=== PATIENT | female | born 1965 ===

== ENCOUNTER 2017-11-08 17:56 | Inpatient (IN) | payer OTHER ==
[2017-11-08 17:56] VITALS: BMI 31.1
[2017-11-08] MEDS ORDERED: Sodium Chloride 0.9% 1,000 ML IV STA (18:10)
[2017-11-08 18:32] LABS: BASO % 0.5 % (0.0-2.0); EOS # 0.2 K/uL (0.0-0.7); EOS % 1.9 % (0.0-4.0); HEMOGLOBIN 10.7 g/dL (12.0-16.0); LYMPH # 1.9 K/uL (1.0-4.3); LYMPH % 19.7 % (20.0-40.0); MEAN CELL VOLUME 74.6 fl (81.0-99.0); MEAN CORPUSCULAR HEMOGLOBIN 24.1 pg (27.0-31.0); MEAN CORPUSCULAR HGB CONC 32.3 g/dL (33.0-37.0); MEAN PLATELET VOLUME 8.7 fl (7.2-11.7); MONO # 0.8 K/uL (0.0-0.8); MONO % 8.2 % (0.0-10.0); NEUT # 6.6 K/uL (1.8-7.0); NEUT % 69.7 % (50.0-75.0); RBC 4.45 Mil/uL (3.80-5.20); RED CELL DISTRIBUTION WIDTH 17.4 % (11.5-14.5); WHITE BLOOD COUNT 9.5 K/uL (4.8-10.8)
[2017-11-08 18:43] LABS: INR 1.1 (0.9-1.2); PARTIAL THROMBOPLASTIN TIME 34.2 Seconds (25.6-37.1); PROTHROMBIN TIME 12.7 Seconds (9.8-13.1)
--- NOTE | 2017-11-08 18:46 | ED PDOC ---
HPI: Abdomen Time Seen by Provider: 11/08/17 18:06 Chief Complaint (Nursing): Abdominal Pain Chief Complaint (Provider): abdominal pain, "skin is yellow" History Per: Patient History/Exam Limitations: no limitations Onset/Duration Of Symptoms: Days (2) Current Symptoms Are (Timing): Still Present Severity: Moderate Location Of Pain/Discomfort: RUQ Quality Of Discomfort: Sharp Associated Symptoms: Nausea, Vomiting, Diarrhea Exacerbating Factors: None Alleviating Factors: None Additional Complaint(s): 52yo male sent to ED from [facility] for RUQ abd pain and nausea/ vomiting associated with noticeable jaundice which started today per patient. Denies fever, chills, bloody stools or hematemesis. Denies etoh abuse or prior history of liver disease. Past Medical History Reviewed: Historical Data, Nursing Documentation, Vital Signs Vital Signs: Last Vital Signs Temp 98.8 F 11/08/17 18:03 Pulse 69 11/08/17 18:03 Resp 21 11/08/17 18:03 BP 117/70 11/08/17 18:03 Pulse Ox 100 11/08/17 18:48 - Medical History PMH: No Chronic Diseases - Surgical History Surgical History: No Surg Hx - Family History Family History: States: Unknown Family Hx - Living Arrangements Living Arrangements: With Family - Home Medications Home Medications: Ambulatory Orders Medication Instructions Recorded Multivit/Iron/Folic Acid/Hb179 1 tab PO DAILY 11/08/17 [Obed Multi For Women Tab] - Allergies Allergies/Adverse Reactions: Allergies Allergy/AdvReac Type Severity Reaction Status Date / Time No Known Allergies Allergy Verified 04/06/17 11:13 Review of Systems Constitutional: Negative for: Fever, Chills Eyes: Positive for: Other (yellowing) Cardiovascular: Negative for: Chest Pain Gastrointestinal: Positive for: Nausea, Vomiting, Abdominal Pain, Diarrhea Genitourinary Female: Negative for: Dysuria Musculoskeletal: Negative for: Neck Pain Skin: Positive for: Jaundice. Negative for: Rash, Lesions Neurological: Negative for: Weakness, Headache Physical Exam - Reviewed Nursing Documentation Reviewed: Yes Vital Signs Reviewed: Yes - Physical Exam Appears: Positive for: Well, Non-toxic, No Acute Distress Head Exam: Positive for: ATRAUMATIC, NORMAL INSPECTION, NORMOCEPHALIC Skin: Positive for: Warm, Jaundice Eye Exam: Positive for: Normal appearance, EOMI, PERRL, Scleral icterus ENT: Positive for: Normal ENT Inspection Neck: Positive for: Normal, Painless ROM Cardiovascular/Chest: Positive for: Regular Rate, Rhythm Respiratory: Positive for: CNT, Normal Breath Sounds Gastrointestinal/Abdominal: Positive for: Soft, Tenderness (RUQ). Negative for : Guarding Back: Positive for: Normal Inspection Extremity: Positive for: Normal ROM Neurologic/Psych: Positive for: Alert, Oriented. Negative for: Motor/Sensory Deficits - Laboratory Results Result Diagrams: 11/08/17 18:29 11/08/17 18:29 - ECG O2 Sat by Pulse Oximetry: 100 Medical Decision Making Medical Decision Making: workup for acute abdomen with clinical evidence of acute jaundice initiated Labs, US abdomen, IVF. Disposition - Clinical Impression Clinical Impression: Abdominal pain, Jaundice - Disposition Disposition: Transfer of Care Disposition Time: 18:48 Condition: STABLE Forms: [facility] (Uzbek) Patient Signed Over To: Geovanny Figueroa Handoff Comments: pending US and labwork, dispo/ likely admission
[2017-11-08 19:23] LABS: ALB/GLOB RATIO 0.9 (1.0-2.1); ALBUMIN 3.6 g/dL (3.5-5.0); ALT/SGPT 311 U/L (9-52); AST/SGOT 194 U/L (14-36); BLOOD UREA NITROGEN 6 mg/dl (7-17); CALCIUM 8.7 mg/dL (8.4-10.2); GFR AFRICAN-AMERICAN > 60; GFR NON-AFRICAN AMERICAN > 60; LIPASE 65 U/L (23-300)
--- NOTE | 2017-11-08 20:38 | ED PDOC ---
- Laboratory Results Result Diagrams: 11/08/17 18:29 11/08/17 18:29 - ECG O2 Sat by Pulse Oximetry: 100 Pulse Ox Interpretation: Normal Medical Decision Making Medical Decision MakinPM: Patient endorsed to me by Dr. Chung pending ultrasound study and labs 830PM:EXAM: US Abdomen Complete CLINICAL HISTORY: The patient is a 52 years female; Pain; Abdominal pain; Epigastric; Additional info: Ruq pain, jaundice 11/08/2017 6:09 PM TECHNIQUE: Real-time ultrasound of the abdomen (complete) with image documentation. COMPARISON: No relevant prior studies available. FINDINGS: Liver: Unremarkable. Gallbladder: Gallbladder wall measures up to 3 mm in thickness.. Cholelithiasis.As per the technologist note, sonographic Kaur sign is positive. Correlate clinically.. Common bile duct: Measures 7.8 mm. Pancreas: Unremarkable as visualized. Kidneys: Unremarkable. No stones. No hydronephrosis. Spleen: Unremarkable. No splenomegaly. Aorta: Unremarkable. No aneurysm. Inferior vena cava: Unremarkable. IMPRESSION: Cholelithiasis and borderline gallbladder wall thickening. As per the technologist note, sonographic Kaur sign is positive. Correlate clinically. Common bile duct is dilated measuring up to 7-8 mm. The remainder of the findings are as described above. Patient re-evaluated, feeling well, denies pain, patient is clearly jaundiced. Informed of results. Case discussed with Keith Okeefe NP. Will consult Dr. Cheatham and place patient in med/surg for additional inpatient management ( MRCP/ERCP, etc.). Disposition - Clinical Impression Clinical Impression: Jaundice, Cholecystitis - POA Present On Arrival: None - Disposition Disposition: Admitted as In-Patient Disposition Time: 20:30 Condition: STABLE
[2017-11-08] MEDS ORDERED: Famotidine 20mg/50ml Premix IVPB SCH (21:00)
[2017-11-08] MEDS ORDERED: Famotidine 20mg/50ml 20 MG/50 ML BAG IVPB ONE (21:48)
[2017-11-08] MEDS: Sodium Chloride 0.9% 1,000 ML IV SCH (21:51)
[2017-11-08] MEDS ORDERED: cefOXitin 2 GM in Sodium Chloride 0.9% 100 ML IVPB STA (22:01)
[2017-11-09] MEDS: Sodium Chloride 0.9% 1,000 ML IV SCH ×3 (03:40→16:00)
[2017-11-09 06:23] LABS: BASO # 0.1 K/uL (0.0-0.2); BASO % 0.6 % (0.0-2.0); EOS # 0.3 K/uL (0.0-0.7); EOS % 3.7 % (0.0-4.0); HEMOGLOBIN 10.3 g/dL (12.0-16.0); LYMPH # 2.4 K/uL (1.0-4.3); LYMPH % 29.3 % (20.0-40.0); MEAN CELL VOLUME 74.7 fl (81.0-99.0); MEAN CORPUSCULAR HGB CONC 32.1 g/dL (33.0-37.0); MEAN PLATELET VOLUME 8.9 fl (7.2-11.7); MONO # 0.8 K/uL (0.0-0.8); NEUT # 4.8 K/uL (1.8-7.0); NEUT % 57.4 % (50.0-75.0); NRBC % 0.1 % (0.0-0.0); RBC 4.27 Mil/uL (3.80-5.20); WHITE BLOOD COUNT 8.3 K/uL (4.8-10.8)
[2017-11-09 06:49] LABS: ALB/GLOB RATIO 0.9 (1.0-2.1); ALBUMIN 3.2 g/dL (3.5-5.0); ALT/SGPT 245 U/L (9-52); AST/SGOT 138 U/L (14-36); BLOOD UREA NITROGEN 6 mg/dl (7-17); GFR AFRICAN-AMERICAN > 60; GFR NON-AFRICAN AMERICAN > 60
--- NOTE | 2017-11-09 08:05 | CP.PCM.HP ---
History of Present Illness - History of Present Illness History of Present Illness: pt admitted for jaundice, elev lft/bili and choleductolithiasis. abd us completed but no final report. case d/c w/ dr perez and mri abd and mrcp ordered. ?? ercp today. at present, no f/,c n/v/d. lft/bili improving no med/surg hx reported Present on Admission - Present on Admission Any Indicators Present on Admission: No Review of Systems - Gastrointestinal Gastrointestinal: As Per HPI, Abdominal Pain, Nausea - Integumentary Integumentary: As Per HPI Additional comments: mild jaundice Past Patient History - Infectious Disease Hx of Infectious Diseases: None - Past Medical History & Family History Past Medical History?: No - Past Social History Smoking Status: Never Smoked - CARDIAC Hx Cardiac Disorders: No - PULMONARY Hx Respiratory Disorders: No - NEUROLOGICAL Hx Alzheimer's Disease: No - HEENT Hx HEENT Problems: No - RENAL Hx Chronic Kidney Disease: No - ENDOCRINE/METABOLIC Hx Endocrine Disorders: No - HEMATOLOGICAL/ONCOLOGICAL Hx Blood Disorders: No Hx AIDS: No Hx Human Immunodeficiency Virus (HIV): No - INTEGUMENTARY Hx Dermatological Problems: No - MUSCULOSKELETAL/RHEUMATOLOGICAL Hx Musculoskeletal Disorders: No Hx Falls: No - GASTROINTESTINAL Hx Gastrointestinal Disorders: No - GENITOURINARY/GYNECOLOGICAL Hx Genitourinary Disorders: No - PSYCHIATRIC Hx Psychophysiologic Disorder: No Hx Substance Use: No - SURGICAL HISTORY Hx Surgeries: No - ANESTHESIA Hx Anesthesia: No Meds Allergies/Adverse Reactions: Allergies Allergy/AdvReac Type Severity Reaction Status Date / Time No Known Allergies Allergy Verified 04/06/17 11:13 Physical Exam - Constitutional Appears: Well, Non-toxic, No Acute Distress - Head Exam Head Exam: ATRAUMATIC, NORMAL INSPECTION, NORMOCEPHALIC - Eye Exam Eye Exam: EOMI, Normal appearance, PERRL Pupil Exam: NORMAL ACCOMODATION, PERRL - ENT Exam ENT Exam: Mucous Membranes Moist, Normal Exam - Neck Exam Neck exam: Positive for: Normal Inspection - Respiratory Exam Respiratory Exam: Clear to Auscultation Bilateral, NORMAL BREATHING PATTERN - Cardiovascular Exam Cardiovascular Exam: REGULAR RHYTHM, RRR, +S1, +S2 - GI/Abdominal Exam GI & Abdominal Exam: Normal Bowel Sounds, Soft, Tenderness Additional comments: ruq tenderness - Extremities Exam Extremities exam: Positive for: full ROM, normal capillary refill, normal inspection, pedal pulses present - Back Exam Back exam: FULL ROM, NORMAL INSPECTION - Neurological Exam Neurological exam: Alert, CN II-XII Intact, Normal Gait, Oriented x3, Reflexes Normal - Psychiatric Exam Psychiatric exam: Normal Affect, Normal Mood - Skin Skin Exam: Dry, Intact, Normal Color, Warm Results - Vital Signs Recent Vital Signs: Last Vital Signs Temp 97.6 F 11/09/17 07:51 Pulse 65 11/09/17 07:51 Resp 18 11/09/17 07:51 BP 115/69 11/09/17 07:51 Pulse Ox 98 11/09/17 07:51 - Labs Result Diagrams: 11/09/17 05:55 11/09/17 05:55 Labs: Laboratory Results - last 24 hr 11/08/17 11/08/17 11/08/17 18:29 18:29 18:29 WBC 9.5 RBC 4.45 Hgb 10.7 L Hct 33.1 L MCV 74.6 L MCH 24.1 L MCHC 32.3 L RDW 17.4 H Plt Count 274 MPV 8.7 Neut % (Auto) 69.7 Lymph % (Auto) 19.7 L [place] % (Auto) 8.2 Eos % (Auto) 1.9 Baso % (Auto) 0.5 Neut # (Auto) 6.6 Lymph # (Auto) 1.9 [place] # (Auto) 0.8 Eos # (Auto) 0.2 Baso # (Auto) 0.0 PT 12.7 INR 1.1 APTT 34.2 Sodium 136 Potassium 3.5 L Chloride 99 Carbon Dioxide 25 Anion Gap 16 BUN 6 L Creatinine 0.7 Est GFR ( Amer) > 60 Est GFR (Non-Af Amer) > 60 Random Glucose 114 H Calcium 8.7 Total Bilirubin 4.9 H Direct Bilirubin AST 194 H ALT 311 H Alkaline Phosphatase 223 H Total Protein 7.6 Albumin 3.6 Globulin 3.9 Albumin/Globulin Ratio 0.9 L Lipase 65 Alcohol, Quantitative < 10 Blood Type Antibody Screen BBK History Checked 11/08/17 11/08/17 11/09/17 20:47 22:01 05:55 WBC 8.3 RBC 4.27 Hgb 10.3 L Hct 31.9 L MCV 74.7 L MCH 24.0 L MCHC 32.1 L RDW 17.0 H Plt Count 266 MPV 8.9 Neut % (Auto) 57.4 Lymph % (Auto) 29.3 [place] % (Auto) 9.0 Eos % (Auto) 3.7 Baso % (Auto) 0.6 Neut # (Auto) 4.8 Lymph # (Auto) 2.4 [place] # (Auto) 0.8 Eos # (Auto) 0.3 Baso # (Auto) 0.1 PT INR APTT Sodium Potassium Chloride Carbon Dioxide Anion Gap BUN Creatinine Est GFR ( Amer) Est GFR (Non-Af Amer) Random Glucose Calcium Total Bilirubin Direct Bilirubin 4.0 H AST ALT Alkaline Phosphatase Total Protein Albumin Globulin Albumin/Globulin Ratio Lipase Alcohol, Quantitative Blood Type O NEGATIVE Antibody Screen Negative BBK History Checked No verified bt 11/09/17 05:55 WBC RBC Hgb Hct MCV MCH MCHC RDW Plt Count MPV Neut % (Auto) Lymph % (Auto) [place] % (Auto) Eos % (Auto) Baso % (Auto) Neut # (Auto) Lymph # (Auto) [place] # (Auto) Eos # (Auto) Baso # (Auto) PT INR APTT Sodium 139 Potassium 3.7 Chloride 102 Carbon Dioxide 26 Anion Gap 15 BUN 6 L Creatinine 0.6 L Est GFR ( Amer) > 60 Est GFR (Non-Af Amer) > 60 Random Glucose 94 Calcium 8.0 L Total Bilirubin 4.4 H Direct Bilirubin AST 138 H D ALT 245 H D Alkaline Phosphatase 197 H Total Protein 6.7 Albumin 3.2 L Globulin 3.6 Albumin/Globulin Ratio 0.9 L Lipase Alcohol, Quantitative Blood Type Antibody Screen BBK History Checked Assessment & Plan (1) Choledocholithiasis Assessment and Plan: mri w/ contrast, mrcp w/o contrast gi, surgery pain and nausea control ivf, npo Status: Acute (2) DVT prophylaxis Assessment and Plan: scd nad ae hose ambulation hold anticoag for possible or intervention Status: Acute (3) Cholecystitis Assessment and Plan: mri w/ contrast, mrcp w/o contrast gi, surgery pain and nausea control ivf, npo anbx Status: Acute (4) Jaundice Assessment and Plan: improving, ivf monitor, gi Status: Acute Decision To Admit - Pt Status Changed To: Hospital Disposition Of: Inpatient - Admit Certification Admit to Inpatient:: After my assessment, the patient will require hospitalization for at least two midnights. This is because of the severity of symptoms shown, intensity of services needed, and/or the medical risk in this patient being treated as an outpatient. - . Bed Request Type: Med/Surg Admitting Physician: Bryan Shah
[2017-11-09] MEDS ORDERED: [UNRECOGNIZED DRUG - OTHER] PO SCH (09:00)
[2017-11-09] MEDS ORDERED: FOLIC ACID PO SCH (09:00)
[2017-11-09] MEDS ORDERED: IRON PO SCH (09:00)
[2017-11-09] MEDS ORDERED: MULTIVIT PO SCH (09:00)
[2017-11-09 09:03] LABS: SQUAMOUS EPITHIAL 4 /hpf (0-5); URINE BACTERIA RARE (<OCC); URINE BILIRUBIN MODERATE (NEGATIVE); URINE BLOOD NEGATIVE (NEGATIVE); URINE CLARITY SLIGHTY-CLOUDY (Clear); URINE COLOR AMBER (YELLOW); URINE GLUCOSE (UA) NEG (Normal); URINE LEUKOCYTE ESTERASE NEG Leu/uL (Negative); URINE PROTEIN NEGATIVE (NEGATIVE)
[2017-11-09 09:38] LABS: HCG,QUALITATIVE URINE NEGATIVE (NEGATIVE)
--- NOTE | 2017-11-09 10:01 | US ---
HISTORY: RUQ pain, jaundice 52-year-old female COMPARISON: None. TECHNIQUE: Sonographic evaluation of the abdomen. FINDINGS: LIVER: Measures 14.3 cm. Normal echogenicity of the liver parenchyma. No mass. No intrahepatic bile duct dilatation. GALLBLADDER: Per the technologist's note there are apparent tiny gallstones within the gallbladder neck. Technologist has noted also noted a positive Kaur sign. Please correlate clinically. The gallbladder wall thickness is 3.01 mm cysts is the upper limits of normal. No precious pericholecystic fluid appreciated. COMMON BILE DUCT: Measures 7.82 mm. No stones within the duct appreciated. . Common bile duct for patient's age is nearing the upper limits of normal. PANCREAS: Unremarkable as visualized. No mass. No ductal dilatation. RIGHT KIDNEY: Measures 11.3 x 4.8 x 3.7cm. Normal echogenicity. No calculus, mass, or hydronephrosis. LEFT KIDNEY: Measures 11.3 x 4.5 x 4.8cm. Normal echogenicity. No calculus, mass, or hydronephrosis. SPLEEN: Normal in size and contour. No mass. AORTA: No aneurysmal dilatation. IVC: Unremarkable. OTHER FINDINGS: None. IMPRESSION: Tiny gallstones apparent in the gallbladder neck with top-normal gallbladder wall thickness. Positive ultrasound Kaur sign per ct mri technologist note. Please correlate clinically. Common bile duct also nearing the upper limits of normal. Concordant results (preliminary interpretation) provided by [employer].
--- NOTE | 2017-11-09 10:32 | CP.PCM.CON ---
History of Present Illness - History of Present Illness History of Present Illness: 52 y.o. female comes to the hospital c/o abdominal pain for the duration of the last 2 days. Patient states that she also noticed that her urine is very dark in color and her stool is stone to white color. Patient also reports seen her eyes really yellow so she decided to come to the hospital to get her self checked out. Denies any fever but reported some chills. Reports some nausea and vomiting, no blood in the vomitus, no diarrhea or constipation. No sick contacts at home. No other complains at present time. Review of Systems - Constitutional Constitutional: As Per HPI - EENT Eyes: As Per HPI Ears: Other (unremarkable) Nose/Mouth/Throat: Other (unremarkable) - Breasts Breasts: Other (unremarkable) - Cardiovascular Cardiovascular: Other (unremarkable) - Respiratory Respiratory: Other (unremarkable) - Gastrointestinal Gastrointestinal: As Per HPI - Genitourinary Genitourinary: As Per HPI - Reproductive: Female Reproductive:Female: Other (unremarkable) - Musculoskeletal Musculoskeletal: Other (unremarkable) - Integumentary Integumentary: Jaundice - Neurological Neurological: Other (unremarkable) - Psychiatric Psychiatric: Other (unremarkable) - Endocrine Endocrine: Other (unremarkable) - Hematologic/Lymphatic Hematologic: Other (unremarkable) Past Patient History - Infectious Disease Hx of Infectious Diseases: None - Past Medical History & Family History Past Medical History?: No - Past Social History Smoking Status: Never Smoked - CARDIAC Hx Cardiac Disorders: No - PULMONARY Hx Respiratory Disorders: No - NEUROLOGICAL Hx Alzheimer's Disease: No - HEENT Hx HEENT Problems: No - RENAL Hx Chronic Kidney Disease: No - ENDOCRINE/METABOLIC Hx Endocrine Disorders: No - HEMATOLOGICAL/ONCOLOGICAL Hx Blood Disorders: No Hx AIDS: No Hx Human Immunodeficiency Virus (HIV): No - INTEGUMENTARY Hx Dermatological Problems: No - MUSCULOSKELETAL/RHEUMATOLOGICAL Hx Musculoskeletal Disorders: No Hx Falls: No - GASTROINTESTINAL Hx Gastrointestinal Disorders: No - GENITOURINARY/GYNECOLOGICAL Hx Genitourinary Disorders: No - PSYCHIATRIC Hx Psychophysiologic Disorder: No Hx Substance Use: No - SURGICAL HISTORY Hx Surgeries: No - ANESTHESIA Hx Anesthesia: No Meds Allergies/Adverse Reactions: Allergies Allergy/AdvReac Type Severity Reaction Status Date / Time No Known Allergies Allergy Verified 04/06/17 11:13 - Medications Medications: Current Medications Sodium Chloride (Sodium Chloride 0.9%) 1,000 mls @ 150 mls/hr IV .Q6H40M [facility] Stop: 11/09/17 20:49 Last Admin: 11/09/17 03:40 Dose: Not Given Famotidine (Pepcid 20mg/50ml Premix) 20 mg in 50 mls @ 100 mls/hr IVPB Q12 [facility] Cefoxitin Sodium (Mefoxin Iv 1 Gm Duplex) 1 gm in 50 mls @ 50 mls/hr IVPB Q8 [facility] PRN Reason: Protocol Ketorolac Tromethamine (Toradol) 30 mg IVP Q6 PRN PRN Reason: Pain, moderate (4-7) Morphine Sulfate (Morphine) 2 mg IVP Q4 PRN PRN Reason: Pain, severe (8-10) Ondansetron HCl (Zofran Odt) 4 mg PO Q8H PRN PRN Reason: Nausea/Vomiting Vitamin B Complex/Vit C/Folic Acid (Nephro-Bright) 1 tab PO DAILY [facility] Physical Exam - Constitutional Appears: Non-toxic, No Acute Distress - Head Exam Head Exam: ATRAUMATIC, NORMAL INSPECTION, NORMOCEPHALIC - Eye Exam Eye Exam: EOMI, Scleral icterus Pupil Exam: NORMAL ACCOMODATION, PERRL - ENT Exam ENT Exam: Mucous Membranes Moist, Normal Exam - Neck Exam Neck exam: Positive for: Full Rom, Normal Inspection - Respiratory Exam Respiratory Exam: Clear to Auscultation Bilateral, NORMAL BREATHING PATTERN - Cardiovascular Exam Cardiovascular Exam: REGULAR RHYTHM, +S1, +S2 - GI/Abdominal Exam GI & Abdominal Exam: Normal Bowel Sounds, Soft Additional comments: tender in the epigastrium, ND, no rebound, no guarding, negative Kaur's sign - Rectal Exam Rectal Exam: Deferred - Extremities Exam Extremities exam: Positive for: full ROM, normal inspection - Back Exam Back exam: NORMAL INSPECTION - Neurological Exam Neurological exam: Alert, CN II-XII Intact, Oriented x3 - Psychiatric Exam Psychiatric exam: Normal Affect, Normal Mood - Skin Skin Exam: Dry, Intact, Warm Additional comments: Jaundice Results - Vital Signs Recent Vital Signs: Last Vital Signs Temp 97.6 F 11/09/17 07:51 Pulse 65 11/09/17 07:51 Resp 18 11/09/17 07:51 BP 115/69 11/09/17 07:51 Pulse Ox 98 11/09/17 07:51 - Labs Result Diagrams: 11/09/17 05:55 11/09/17 05:55 Labs: Laboratory Results - last 24 hr 11/08/17 11/08/17 11/08/17 18:29 18:29 18:29 WBC 9.5 RBC 4.45 Hgb 10.7 L Hct 33.1 L MCV 74.6 L MCH 24.1 L MCHC 32.3 L RDW 17.4 H Plt Count 274 MPV 8.7 Neut % (Auto) 69.7 Lymph % (Auto) 19.7 L [place] % (Auto) 8.2 Eos % (Auto) 1.9 Baso % (Auto) 0.5 Neut # (Auto) 6.6 Lymph # (Auto) 1.9 [place] # (Auto) 0.8 Eos # (Auto) 0.2 Baso # (Auto) 0.0 PT 12.7 INR 1.1 APTT 34.2 Sodium 136 Potassium 3.5 L Chloride 99 Carbon Dioxide 25 Anion Gap 16 BUN 6 L Creatinine 0.7 Est GFR ( Amer) > 60 Est GFR (Non-Af Amer) > 60 Random Glucose 114 H Calcium 8.7 Total Bilirubin 4.9 H Direct Bilirubin AST 194 H ALT 311 H Alkaline Phosphatase 223 H Total Protein 7.6 Albumin 3.6 Globulin 3.9 Albumin/Globulin Ratio 0.9 L Lipase 65 Urine Color Urine Clarity Urine pH Ur Specific [place] Urine Protein Urine Glucose (UA) Urine Ketones Urine Blood Urine Nitrate Urine Bilirubin Urine Urobilinogen Ur Leukocyte Esterase Urine RBC (Auto) Urine Microscopic WBC Ur Squamous Epith Cells Urine Bacteria Urine HCG, Qual Alcohol, Quantitative < 10 Blood Type Antibody Screen BBK History Checked 11/08/17 11/08/17 11/09/17 20:47 22:01 05:55 WBC 8.3 RBC 4.27 Hgb 10.3 L Hct 31.9 L MCV 74.7 L MCH 24.0 L MCHC 32.1 L RDW 17.0 H Plt Count 266 MPV 8.9 Neut % (Auto) 57.4 Lymph % (Auto) 29.3 [place] % (Auto) 9.0 Eos % (Auto) 3.7 Baso % (Auto) 0.6 Neut # (Auto) 4.8 Lymph # (Auto) 2.4 [place] # (Auto) 0.8 Eos # (Auto) 0.3 Baso # (Auto) 0.1 PT INR APTT Sodium Potassium Chloride Carbon Dioxide Anion Gap BUN Creatinine Est GFR ( Amer) Est GFR (Non-Af Amer) Random Glucose Calcium Total Bilirubin Direct Bilirubin 4.0 H AST ALT Alkaline Phosphatase Total Protein Albumin Globulin Albumin/Globulin Ratio Lipase Urine Color Urine Clarity Urine pH Ur Specific [place] Urine Protein Urine Glucose (UA) Urine Ketones Urine Blood Urine Nitrate Urine Bilirubin Urine Urobilinogen Ur Leukocyte Esterase Urine RBC (Auto) Urine Microscopic WBC Ur Squamous Epith Cells Urine Bacteria Urine HCG, Qual Alcohol, Quantitative Blood Type O NEGATIVE Antibody Screen Negative BBK History Checked No verified bt 11/09/17 11/09/17 05:55 08:50 WBC RBC Hgb Hct MCV MCH MCHC RDW Plt Count MPV Neut % (Auto) Lymph % (Auto) [place] % (Auto) Eos % (Auto) Baso % (Auto) Neut # (Auto) Lymph # (Auto) [place] # (Auto) Eos # (Auto) Baso # (Auto) PT INR APTT Sodium 139 Potassium 3.7 Chloride 102 Carbon Dioxide 26 Anion Gap 15 BUN 6 L Creatinine 0.6 L Est GFR ( Amer) > 60 Est GFR (Non-Af Amer) > 60 Random Glucose 94 Calcium 8.0 L Total Bilirubin 4.4 H Direct Bilirubin AST 138 H D ALT 245 H D Alkaline Phosphatase 197 H Total Protein 6.7 Albumin 3.2 L Globulin 3.6 Albumin/Globulin Ratio 0.9 L Lipase Urine Color [place] Urine Clarity Slighty-cloudy Urine pH 6.0 Ur Specific [place] 1.025 Urine Protein Negative Urine Glucose (UA) Neg Urine Ketones 80 Urine Blood Negative Urine Nitrate Negative Urine Bilirubin Moderate Urine Urobilinogen 4.0 H Ur Leukocyte Esterase Neg Urine RBC (Auto) 3 Urine Microscopic WBC 8 H Ur Squamous Epith Cells 4 Urine Bacteria Rare Urine HCG, Qual Negative Alcohol, Quantitative Blood Type Antibody Screen BBK History Checked - Imaging and Cardiology US - abdomen Status: Image reviewed by me, Report reviewed by me Assessment & Plan - Assessment and Plan (Free Text) Assessment: 52 y.o. female with abdominal pain and elevated LFTs r/o choledocholithiasis Plan: - Keep NPO - IV fluids - Pain control - Continue antibiotics - MRCP to r/o choledocholithiasis - GI consultation - Repeat labs in am - Will follow
[2017-11-09] MEDS ORDERED: Sodium Chloride 0.9% 50 ML IV ONE (10:37)
[2017-11-09] MEDS ORDERED: Gadodiamide 287 MG/ML VIAL (15ML) IV ONE (10:37)
[2017-11-09] MEDS: cefOXitin IV 1 gm in Dextrose 1 GM/50 ML BAG IVPB SCH ×2 (11:00→16:54)
[2017-11-09] MEDS: Famotidine 20mg/50ml 20 MG/50 ML BAG IVPB SCH ×2 (12:33→22:00)
[2017-11-09] MEDS: Multivitamin Vitamin B Complex (Nephro-Vite) Tab PO SCH (12:34)
--- NOTE | 2017-11-09 12:49 | MRI ---
PROCEDURE: Magnetic Resonance Cholangiopancreatography HISTORY: COMPARISON: Abdominal ultrasound TECHNIQUE: Multiplanar, multisequence MR images of the abdomen were obtained, including heavily T2 weighted MRCP images of the biliary system. Rotating maximum intensity projection images of the biliary system were generated. 15 cc of Omniscan was injected FINDINGS: MRCP: The common bile duct appears slightly more prominent on this MRCP than suggested on the ultrasound nevertheless this is approximately 8 to 9 mm in size on this exam. (series 11, image 2). . Within the distal common bile duct a 8 to 9 mm stone is suggested compatible with choledocholithiasis. The gallbladder is patulous distended and tortuous with multiple gallstones within it as well. Apparently within the gallbladder neck there is another 11 mm stone suggested. Multiple smaller stones are seen layering is well in the gallbladder. Minimal mild intrahepatic biliary ductal dilatation. Is also suspect. No gross obstructing mass seen. Tiny concomitant mild stenosis of the distal common bile duct not excluded. LIVER: On this exam there are T2 hyperintense lesions, nonenhancing, probably relating to lobulated and/or clustered liver cysts: 1 measures 2.3 cm in the right hepatic lobe (series 6, image 15) a larger cluster / loculated cysts in the more inferior posterior right hepatic lobe is also noted measuring up to 2.6 cm (series 7, image 30). I believe this lesion may have been inadvertently marked by the process safety engineering technologist as the gallbladder ofn the abdominal ultrasound images. GALLBLADDER: The gallbladder is patulous distended and tortuous with multiple gallstones within it as well. Apparently within the gallbladder neck there is another 11 mm stone suggested. Multiple smaller stones are seen layering is well in the gallbladder. SPLEEN: Unremarkable. PANCREAS: No obstructing mass seen. No pancreatic ductal dilatation noted. Common bile duct prominent 8 to 9 mm with stone within it suggested. ADRENALS: Unremarkable. KIDNEYS: No hydronephrosis. Tiny 1 to 2 mm left renal cortical cysts -possible tiny size impedes optimal characterisation and their depiction. AORTA: No aneurysm. ASCITES: None. OTHER FINDINGS: None. IMPRESSION: Cholelithiasis and choledocholithiasis. No obstructing pancreas or peripancreatic mass seen. Mild intrahepatic bile duct dilatation. Cystic appearing masses, nonenhancing, in the liver as referenced above. Note is made that this was not ascertained or so specified on the same-day right upper quadrant ultrasound. I believe the largest right hepatic lobe lesion, approximately 2.6 cm was inadvertently marked by the process safety engineering technologist as representing the fluid-filled gallbaldder on some of the ultrasound images. On single axial MRI images, these are similar in size .
[2017-11-09 17:13] LABS: HEPATITIS B SURFACE AG Negative (NEGATIVE)
[2017-11-09 17:18] LABS: HEPATITIS A IGM NEGATIVE (NEGATIVE); HEPATITIS B CORE AB NEGATIVE (NEGATIVE)
[2017-11-09 17:30] LABS: HEPATITIS C ANTIBODY NEGATIVE (NEGATIVE)
[2017-11-10] MEDS: cefOXitin IV 1 gm in Dextrose 1 GM/50 ML BAG IVPB SCH ×3 (01:12→18:57)
[2017-11-10 06:19] LABS: BASO # 0.1 K/uL (0.0-0.2); BASO % 1.1 % (0.0-2.0); EOS # 0.4 K/uL (0.0-0.7); EOS % 5.3 % (0.0-4.0); HEMOGLOBIN 10.3 g/dL (12.0-16.0); LYMPH # 2.4 K/uL (1.0-4.3); LYMPH % 31.8 % (20.0-40.0); MEAN CELL VOLUME 75.4 fl (81.0-99.0); MEAN CORPUSCULAR HEMOGLOBIN 23.9 pg (27.0-31.0); MEAN CORPUSCULAR HGB CONC 31.8 g/dL (33.0-37.0); MEAN PLATELET VOLUME 9.3 fl (7.2-11.7); MONO # 0.6 K/uL (0.0-0.8); MONO % 8.1 % (0.0-10.0); NEUT # 4.1 K/uL (1.8-7.0); NEUT % 53.7 % (50.0-75.0); RBC 4.3 Mil/uL (3.80-5.20); RED CELL DISTRIBUTION WIDTH 17.4 % (11.5-14.5); WHITE BLOOD COUNT 7.6 K/uL (4.8-10.8)
[2017-11-10 06:25] LABS: ALB/GLOB RATIO 0.9 (1.0-2.1); ALBUMIN 3.2 g/dL (3.5-5.0); ALT/SGPT 212 U/L (9-52); AST/SGOT 113 U/L (14-36); BLOOD UREA NITROGEN 5 mg/dl (7-17); CALCIUM 8.1 mg/dL (8.4-10.2); GFR AFRICAN-AMERICAN > 60; GFR NON-AFRICAN AMERICAN > 60
[2017-11-10] MEDS ORDERED: Indomethacin 50 MG Suppository PR ONE ×3 (07:30→09:18)
[2017-11-10] MEDS ORDERED: Iohexol 240 (50 ml) ONE (07:30)
[2017-11-10] MEDS ORDERED: EPINEPHrine 1 mg/ml (1:1000) Inj ONE (07:30)
[2017-11-10] MEDS ORDERED: Glucagon Recombinant 1 mg Inj ONE ×2 (07:30→10:48)
--- NOTE | 2017-11-10 07:53 | CP.PCM.PN ---
Subjective - Date & Time of Evaluation Date of Evaluation: 11/10/17 Time of Evaluation: 07:51 - Subjective Subjective: General Surgery Progress Note 52F seen sitting at bedside. States that pain is improved since yesterday. Denies any acute overnight events or any new complaints. Denies any recent N/V/F /C/CP/SOB/D Objective - Vital Signs/Intake and Output Vital Signs (last 24 hours): Temp Pulse Resp BP Pulse Ox 98.3 F 69 18 120/68 97 11/09/17 23:33 11/09/17 23:33 11/09/17 23:33 11/09/17 23:33 11/09/17 23:33 - Medications Medications: Current Medications Famotidine (Pepcid 20mg/50ml Premix) 20 mg in 50 mls @ 100 mls/hr IVPB Q12 [facility] Last Admin: 11/09/17 22:00 Dose: 100 mls/hr Cefoxitin Sodium (Mefoxin Iv 1 Gm Duplex) 1 gm in 50 mls @ 50 mls/hr IVPB Q8 YRIS PRN Reason: Protocol Last Admin: 11/10/17 01:12 Dose: 50 mls/hr Indomethacin (Indocin Suppository) 100 mg MN ONCE ONE Stop: 11/10/17 08:01 Ketorolac Tromethamine (Toradol) 30 mg IVP Q6 PRN PRN Reason: Pain, moderate (4-7) Morphine Sulfate (Morphine) 2 mg IVP Q4 PRN PRN Reason: Pain, severe (8-10) Ondansetron HCl (Zofran Odt) 4 mg PO Q8H PRN PRN Reason: Nausea/Vomiting Vitamin B Complex/Vit C/Folic Acid (Nephro-Bright) 1 tab PO DAILY [facility] Last Admin: 11/09/17 12:34 Dose: 1 tab - Labs Labs: 11/10/17 05:40 11/10/17 05:40 PT 12.7 Seconds (9.8-13.1) 11/08/17 18:29 INR 1.1 (0.9-1.2) 11/08/17 18:29 APTT 34.2 Seconds (25.6-37.1) 11/08/17 18:29 - Constitutional Appears: Well, Non-toxic, No Acute Distress - Head Exam Head Exam: ATRAUMATIC, NORMOCEPHALIC - GI/Abdominal Exam GI & Abdominal Exam: Soft, Tenderness. absent: Firm, Guarding, Rebound Additional comments: Minimal tenderness with palpation to epigastric area without rebound or guarding - Neurological Exam Neurological Exam: Alert, Awake, Oriented x3 - Psychiatric Exam Psychiatric exam: Normal Affect, Normal Mood Assessment and Plan - Assessment and Plan (Free Text) Assessment: 52F with Cholelithiasis and Choledocolithiasis Plan: Afebrile, absent leukocytosis Abx Pain meds AST/ALT elevated MRCP (+) cholelithiasis and choledocolithiasis NPO Patient for ERCP today Will follow up results and recs
--- NOTE | 2017-11-10 08:11 | CP.PCM.PN ---
Subjective - Date & Time of Evaluation Date of Evaluation: 11/10/17 Time of Evaluation: 08:09 - Subjective Subjective: pt doing well, sitting up in chair. no f/,c n/v/d. still slightly jaundice. no pain, mrcp noted ercp today at 0845 pt has been npo Objective - Vital Signs/Intake and Output Vital Signs (last 24 hours): Temp Pulse Resp BP Pulse Ox 98.3 F 69 18 120/68 97 11/09/17 23:33 11/09/17 23:33 11/09/17 23:33 11/09/17 23:33 11/09/17 23:33 - Medications Medications: Current Medications Famotidine (Pepcid 20mg/50ml Premix) 20 mg in 50 mls @ 100 mls/hr IVPB Q12 [facility] Last Admin: 11/09/17 22:00 Dose: 100 mls/hr Cefoxitin Sodium (Mefoxin Iv 1 Gm Duplex) 1 gm in 50 mls @ 50 mls/hr IVPB Q8 YRIS PRN Reason: Protocol Last Admin: 11/10/17 01:12 Dose: 50 mls/hr Ketorolac Tromethamine (Toradol) 30 mg IVP Q6 PRN PRN Reason: Pain, moderate (4-7) Morphine Sulfate (Morphine) 2 mg IVP Q4 PRN PRN Reason: Pain, severe (8-10) Ondansetron HCl (Zofran Odt) 4 mg PO Q8H PRN PRN Reason: Nausea/Vomiting Vitamin B Complex/Vit C/Folic Acid (Nephro-Bright) 1 tab PO DAILY [facility] Last Admin: 11/09/17 12:34 Dose: 1 tab - Labs Labs: 11/10/17 05:40 11/10/17 05:40 PT 12.7 Seconds (9.8-13.1) 11/08/17 18:29 INR 1.1 (0.9-1.2) 11/08/17 18:29 APTT 34.2 Seconds (25.6-37.1) 11/08/17 18:29 - Constitutional Appears: Well, Non-toxic, No Acute Distress - Head Exam Head Exam: ATRAUMATIC, NORMAL INSPECTION, NORMOCEPHALIC - Eye Exam Eye Exam: EOMI, Normal appearance, PERRL Pupil Exam: NORMAL ACCOMODATION, PERRL - ENT Exam ENT Exam: Mucous Membranes Moist, Normal Exam - Neck Exam Neck Exam: Full ROM, Normal Inspection. absent: Lymphadenopathy - Respiratory Exam Respiratory Exam: Clear to Ausculation Bilateral, NORMAL BREATHING PATTERN - Cardiovascular Exam Cardiovascular Exam: REGULAR RHYTHM, RRR, +S1, +S2. absent: Murmur - GI/Abdominal Exam GI & Abdominal Exam: Soft, Normal Bowel Sounds. absent: Tenderness - Extremities Exam Extremities Exam: Full ROM, Normal Capillary Refill, Normal Inspection. absent : Joint Swelling, Pedal Edema - Back Exam Back Exam: NORMAL INSPECTION - Neurological Exam Neurological Exam: Alert, Awake, CN II-XII Intact, Normal Gait, Oriented x3 - Psychiatric Exam Psychiatric exam: Normal Affect, Normal Mood - Skin Skin Exam: Dry, Intact, Warm Additional comments: slight jaundice Assessment and Plan (1) Choledocholithiasis Status: Acute (2) DVT prophylaxis Status: Acute (3) Cholecystitis Status: Acute (4) Jaundice Status: Acute - Assessment and Plan (Free Text) Assessment: (1) Choledocholithiasis Assessment and Plan: mri w/ contrast, mrcp w/o contrast-noted gi, surgery pain and nausea control ivf, npo ERCP today Status: Acute (2) DVT prophylaxis Assessment and Plan: scd nad ae hose ambulation hold anticoag for possible or intervention Status: Acute (3) Cholecystitis Assessment and Plan: mri w/ contrast, mrcp w/o contrast-noted gi, surgery pain and nausea control ivf, npo anbx Status: Acute (4) Jaundice Assessment and Plan: improving, ivf monitor, gi Status: Acute
[2017-11-10] MEDS ORDERED: Sodium Chloride 0.9% 250 ML IV ONE (08:16)
[2017-11-10] MEDS ORDERED: Propofol 10 mg/ml Inj (20 ML) ONE (09:05)
[2017-11-10] MEDS ORDERED: Lactated Ringer's 1,000 ML IV ONE (10:00)
[2017-11-10] MEDS: Multivitamin Vitamin B Complex (Nephro-Vite) Tab PO SCH (10:46)
[2017-11-10] MEDS: Famotidine 20mg/50ml 20 MG/50 ML BAG IVPB SCH ×2 (11:53→22:00)
[2017-11-10] MEDS: Lactated Ringer's 1,000 ML IV SCH ×2 (11:53→22:14)
--- NOTE | 2017-11-10 13:28 | PQF GENQUE ---
This form is a permanent part of the medical record 11/10/17 Keith ARMSTRONGN, [employer] RE[employer], " Cholecystitis" is documented in the Medical Record. Please specify AFTER WORKUP the acuity of this condition with terms such as: Acute Chronic Acute and chronic Acute on chronic Other (please specify in the medical record) Clinically unable to further specify Unknown Admitted with RUQ abdominal pain, jaundice, nausea and vomiting. WBC 9.5. LFT's elevated. US ABD: Tiny gallstones in gallbladder neck . + Kaur sign per technologist. MRCP: : Cholelithiasis and choledocholithiasis. Treated with Mefoxin. Clarification of your documentation is requested to better reflect the severity of illness and intensity of treatment of your patient. Indicators present PHYSICIAN'S RESPONSE Based on your medical judgment of the clinical indicators outlined above please clarify the following: [] Practitioner response acute cholecystitis [] If unable to determine, please check the box, sign and date. Present On Admission (POA) Indicator: [x] Present at the time of admission [] Not present at the time of admission [] Clinically Undetermined In responding to this query, please exercise your independent professional judgment. The fact that a question is asked does not imply that any particular answer is desired or expected. Thank you for your clarification on this documentation. If you have any questions please call:ext [phone] * Thank you, Mary Ann Rodriguez RN [facility]
[2017-11-11] MEDS: cefOXitin IV 1 gm in Dextrose 1 GM/50 ML BAG IVPB SCH ×2 (00:12→08:21)
[2017-11-11] MEDS: Lactated Ringer's 1,000 ML IV SCH ×4 (03:20→06:05)
[2017-11-11 06:09] LABS: BASO # 0.1 K/uL (0.0-0.2); BASO % 0.7 % (0.0-2.0); EOS # 0.3 K/uL (0.0-0.7); EOS % 4.6 % (0.0-4.0); HEMOGLOBIN 9.2 g/dL (12.0-16.0); LYMPH # 2.3 K/uL (1.0-4.3); LYMPH % 31.9 % (20.0-40.0); MEAN CELL VOLUME 75.2 fl (81.0-99.0); MEAN CORPUSCULAR HEMOGLOBIN 24.5 pg (27.0-31.0); MEAN CORPUSCULAR HGB CONC 32.6 g/dL (33.0-37.0); MONO # 0.6 K/uL (0.0-0.8); MONO % 8.1 % (0.0-10.0); NEUT # 3.9 K/uL (1.8-7.0); NEUT % 54.7 % (50.0-75.0); RBC 3.74 Mil/uL (3.80-5.20); WHITE BLOOD COUNT 7.2 K/uL (4.8-10.8)
[2017-11-11 06:16] LABS: ALB/GLOB RATIO 0.9 (1.0-2.1); ALBUMIN 2.8 g/dL (3.5-5.0); ALT/SGPT 177 U/L (9-52); AST/SGOT 88 U/L (14-36); BLOOD UREA NITROGEN 5 mg/dl (7-17); CALCIUM 7.9 mg/dL (8.4-10.2); GFR AFRICAN-AMERICAN > 60; GFR NON-AFRICAN AMERICAN > 60
--- NOTE | 2017-11-11 07:34 | CP.PCM.PN ---
Subjective - Date & Time of Evaluation Date of Evaluation: 11/11/17 Time of Evaluation: 07:33 - Subjective Subjective: pt doing well. on f/c, n/v/d. nbw noted. bili now 2.3 lft trending down. hgb noted 9.3 likel dilution. no abd pain. ercp results d/c w/ dr perez and stents x [address] Objective - Vital Signs/Intake and Output Vital Signs (last 24 hours): Temp Pulse Resp BP Pulse Ox 98.4 F 57 L 18 110/70 98 11/11/17 03:45 11/11/17 03:45 11/11/17 03:45 11/11/17 03:45 11/11/17 03:45 - Medications Medications: Current Medications Famotidine (Pepcid 20mg/50ml Premix) 20 mg in 50 mls @ 100 mls/hr IVPB Q12 [facility] Last Admin: 11/10/17 22:00 Dose: 100 mls/hr Cefoxitin Sodium (Mefoxin Iv 1 Gm Duplex) 1 gm in 50 mls @ 50 mls/hr IVPB Q8 YRIS PRN Reason: Protocol Last Admin: 11/11/17 00:12 Dose: 50 mls/hr Lactated Ringer's (Lactated Ringer's) 1,000 mls @ 125 mls/hr IV .Q8H [facility] Last Admin: 11/11/17 03:30 Dose: 125 mls/hr Lactated Ringer's (Lactated Ringer's) 1,000 mls @ 333 mls/hr IV .Q3H1M [facility] Last Admin: 11/11/17 06:05 Dose: Not Given Ketorolac Tromethamine (Toradol) 30 mg IVP Q6 PRN PRN Reason: Pain, moderate (4-7) Morphine Sulfate (Morphine) 2 mg IVP Q4 PRN PRN Reason: Pain, severe (8-10) Ondansetron HCl (Zofran Odt) 4 mg PO Q8H PRN PRN Reason: Nausea/Vomiting Vitamin B Complex/Vit C/Folic Acid (Nephro-Bright) 1 tab PO DAILY [facility] Last Admin: 11/10/17 10:46 Dose: Not Given - Labs Labs: 11/11/17 05:35 11/11/17 05:35 PT 12.7 Seconds (9.8-13.1) 11/08/17 18:29 INR 1.1 (0.9-1.2) 11/08/17 18:29 APTT 34.2 Seconds (25.6-37.1) 11/08/17 18:29 - Constitutional Appears: Well, Non-toxic, No Acute Distress - Head Exam Head Exam: ATRAUMATIC, NORMAL INSPECTION, NORMOCEPHALIC - Eye Exam Eye Exam: EOMI, Normal appearance, PERRL Pupil Exam: NORMAL ACCOMODATION, PERRL - ENT Exam ENT Exam: Mucous Membranes Moist, Normal Exam - Neck Exam Neck Exam: Full ROM, Normal Inspection. absent: Lymphadenopathy - Respiratory Exam Respiratory Exam: Clear to Ausculation Bilateral, NORMAL BREATHING PATTERN - Cardiovascular Exam Cardiovascular Exam: REGULAR RHYTHM, RRR, +S1, +S2. absent: Murmur - GI/Abdominal Exam GI & Abdominal Exam: Soft, Normal Bowel Sounds. absent: Tenderness - Exam Bimanual exam: NORMAL BIMANUAL EXAM - Extremities Exam Extremities Exam: Full ROM, Normal Capillary Refill, Normal Inspection. absent : Joint Swelling, Pedal Edema - Back Exam Back Exam: NORMAL INSPECTION - Neurological Exam Neurological Exam: Alert, Awake, CN II-XII Intact, Normal Gait, Oriented x3 - Psychiatric Exam Psychiatric exam: Normal Affect, Normal Mood - Skin Skin Exam: Dry, Intact, Normal Color, Warm Assessment and Plan (1) Choledocholithiasis Status: Acute (2) DVT prophylaxis Status: Acute (3) Cholecystitis Status: Acute (4) Jaundice Status: Acute - Assessment and Plan (Free Text) Assessment: (1) Choledocholithiasis Assessment and Plan: mri w/ contrast, mrcp w/o contrast-noted gi, surgery pain and nausea control ivf, npo ERCP today Status: Acute (2) DVT prophylaxis Assessment and Plan: scd nad ae hose ambulation hold anticoag for possible or intervention Status: Acute (3) Cholecystitis Assessment and Plan: mri w/ contrast, mrcp w/o contrast-noted gi, surgery pain and nausea control ivf, npo anbx Status: Acute (4) Jaundice Assessment and Plan: improving, ivf monitor, gi Status: Acute
[2017-11-11] MEDS: Multivitamin Vitamin B Complex (Nephro-Vite) Tab PO SCH (08:21)
--- NOTE | 2017-11-11 08:30 | CP.PCM.PN ---
Subjective - Date & Time of Evaluation Date of Evaluation: 11/11/17 Time of Evaluation: 07:15 - Subjective Subjective: General Surgery Pt S&E, No acute events overnight. No pain, urine less yellow. Denies F/C, N/V. ERCP yesterday with stent. Objective - Vital Signs/Intake and Output Vital Signs (last 24 hours): Temp Pulse Resp BP Pulse Ox 98.4 F 57 L 18 110/70 98 11/11/17 03:45 11/11/17 03:45 11/11/17 03:45 11/11/17 03:45 11/11/17 03:45 - Medications Medications: Current Medications Famotidine (Pepcid 20mg/50ml Premix) 20 mg in 50 mls @ 100 mls/hr IVPB Q12 [facility] Last Admin: 11/10/17 22:00 Dose: 100 mls/hr Cefoxitin Sodium (Mefoxin Iv 1 Gm Duplex) 1 gm in 50 mls @ 50 mls/hr IVPB Q8 YRIS PRN Reason: Protocol Last Admin: 11/11/17 08:21 Dose: 50 mls/hr Lactated Ringer's (Lactated Ringer's) 1,000 mls @ 125 mls/hr IV .Q8H [facility] Last Admin: 11/11/17 03:30 Dose: 125 mls/hr Lactated Ringer's (Lactated Ringer's) 1,000 mls @ 333 mls/hr IV .Q3H1M [facility] Last Admin: 11/11/17 06:05 Dose: Not Given Ketorolac Tromethamine (Toradol) 30 mg IVP Q6 PRN PRN Reason: Pain, moderate (4-7) Morphine Sulfate (Morphine) 2 mg IVP Q4 PRN PRN Reason: Pain, severe (8-10) Ondansetron HCl (Zofran Odt) 4 mg PO Q8H PRN PRN Reason: Nausea/Vomiting Vitamin B Complex/Vit C/Folic Acid (Nephro-Bright) 1 tab PO DAILY [facility] Last Admin: 11/11/17 08:21 Dose: 1 tab - Labs Labs: 11/11/17 05:35 11/11/17 05:35 PT 12.7 Seconds (9.8-13.1) 11/08/17 18:29 INR 1.1 (0.9-1.2) 11/08/17 18:29 APTT 34.2 Seconds (25.6-37.1) 11/08/17 18:29 - Constitutional Appears: Non-toxic, No Acute Distress - Head Exam Head Exam: ATRAUMATIC, NORMOCEPHALIC - Eye Exam Eye Exam: EOMI. absent: Scleral icterus - Respiratory Exam Respiratory Exam: NORMAL BREATHING PATTERN. absent: Respiratory Distress - GI/Abdominal Exam GI & Abdominal Exam: Soft. absent: Distended, Firm, Guarding, Rigid, Tenderness , Rebound - Neurological Exam Neurological Exam: Alert, Awake, Oriented x3 - Skin Skin Exam: Dry, Warm Assessment and Plan - Assessment and Plan (Free Text) Assessment: 52F with choledocolithiasis and cholelithiasis Plan: Awaiting improvement of Tbili and LFTs. Planning for Lap belén AM labs Orozco PGY4
--- NOTE | 2017-11-11 08:31 | CON ---
DATE: 11/10/2017 REFERRING DOCTOR: Dr. Okeefe. REASON FOR CONSULTATION: Abdominal pain. HISTORY OF PRESENT ILLNESS: This is very gene 52-year-old female who presents complaints of jaundice and abdominal pain and discomfort for the past 2 to 3 days. No diarrhea, nausea or vomiting. Currently lying in bed comfortably, in no apparent distress. PAST MEDICAL HISTORY: As above. PAST SURGICAL HISTORY: As above. MEDICATIONS: Have been reviewed. REVIEW OF SYSTEMS: All other systems have been reviewed and negative apart from the HPI. PHYSICAL EXAMINATION: VITAL SIGNS: In the hospital are grossly unremarkable. GENERAL: A pleasant middle-aged female, lying in bed comfortably, in no apparent distress. HEENT: Head is normocephalic and atraumatic. Eyes; pupils are equal, round and reactive to light bilaterally, no conjunctival icterus. No pallor. NECK: Supple. Normal range of motion. No lymphadenopathy appreciated. LUNGS: Coarse breath sounds bilaterally. HEART: S1 and S2, regular rate and rhythm. No murmurs appreciated. ABDOMEN: Soft, some discomfort. Bowel sounds present . RECTAL: Deferred. EXTREMITIES: Pulses felt bilaterally. SKIN: Warm, dry and intact. NEUROLOGIC: A and O x3. LABORATORY DATA: Labs and radiology have been reviewed. WBC 8.3, hemoglobin . Total protein 4.4, AST , ALT 245, and alkaline phosphatase 197. MRI and MR CT shows multiple hepatic cysts as well as choledocholithiasis and cholelithiasis. ASSESSMENT AND PLAN: This is a 52 yo female with choledocholithiasis and cholelithiasis. ERCP planned and surgical consult appreciated. Thank you for the consult. Chencho Cheatham MD/ PhD cc: Dr. Okeefe DAX
[2017-11-11 09:05] VITALS: BP 114/70; PULSE 73; RESP 20; TEMP 98.5; O2SAT 94
[2017-11-11] MEDS: Famotidine 20mg/50ml 20 MG/50 ML BAG IVPB SCH (09:17)
--- NOTE | 2017-11-11 10:23 | CP.PCM.PN ---
Subjective - Date & Time of Evaluation Date of Evaluation: 11/11/17 Time of Evaluation: 10:24 - Subjective Subjective: Pt seen and examined this AM with no complaints at this time. Lab reviewed. T bili and LFTs improving, however still abnormal. PE: Gen: pt sitting in bed in NAD Skin: warm and dry, (-) jaundice Eyes: (+) mild scleral icterus Cardio: S1S2 RRR Lungs: CTA bilaterally Abd: Soft NTND A/P Improving t bili and LFTs after having stent placement during ERCP, however still remains abnormal. Pt to be discharged home and the office will call her to schedule a lap belén as an outpt. Pt discharged from surgery service at this time. Case discussed with Dr. Dorantes and Surgical team. Objective - Vital Signs/Intake and Output Vital Signs (last 24 hours): Temp Pulse Resp BP Pulse Ox 98.5 F 73 20 114/70 94 L 11/11/17 09:00 11/11/17 09:00 11/11/17 09:00 11/11/17 09:00 11/11/17 09:00 - Medications Medications: Current Medications Famotidine (Pepcid 20mg/50ml Premix) 20 mg in 50 mls @ 100 mls/hr IVPB Q12 [facility] Last Admin: 11/11/17 09:17 Dose: 100 mls/hr Cefoxitin Sodium (Mefoxin Iv 1 Gm Duplex) 1 gm in 50 mls @ 50 mls/hr IVPB Q8 [facility] PRN Reason: Protocol Last Admin: 11/11/17 08:21 Dose: 50 mls/hr Lactated Ringer's (Lactated Ringer's) 1,000 mls @ 125 mls/hr IV .Q8H [facility] Last Admin: 11/11/17 03:30 Dose: 125 mls/hr Lactated Ringer's (Lactated Ringer's) 1,000 mls @ 333 mls/hr IV .Q3H1M [facility] Last Admin: 11/11/17 06:05 Dose: Not Given Ketorolac Tromethamine (Toradol) 30 mg IVP Q6 PRN PRN Reason: Pain, moderate (4-7) Morphine Sulfate (Morphine) 2 mg IVP Q4 PRN PRN Reason: Pain, severe (8-10) Ondansetron HCl (Zofran Odt) 4 mg PO Q8H PRN PRN Reason: Nausea/Vomiting Vitamin B Complex/Vit C/Folic Acid (Nephro-Bright) 1 tab PO DAILY [facility] Last Admin: 11/11/17 08:21 Dose: 1 tab - Labs Labs: 11/11/17 05:35 11/11/17 05:35 PT 12.7 Seconds (9.8-13.1) 11/08/17 18:29 INR 1.1 (0.9-1.2) 11/08/17 18:29 APTT 34.2 Seconds (25.6-37.1) 11/08/17 18:29
--- NOTE | 2017-11-11 20:11 | CP.PCM.DIS ---
Provider - Provider Date of Admission: 11/08/17 20:33 Attending physician: Bryan Shah MD Time Spent in preparation of Discharge (in minutes): 15 Diagnosis - Discharge Diagnosis (1) Choledocholithiasis Status: Acute (2) DVT prophylaxis Status: Acute (3) Cholecystitis Status: Acute (4) Jaundice Status: Acute Hospital Course - Lab Results Lab Results: Most Recent Lab Values WBC 7.2 K/uL (4.8-10.8) 11/11/17 05:35 RBC 3.74 Mil/uL (3.80-5.20) L 11/11/17 05:35 Hgb 9.2 g/dL (12.0-16.0) L 11/11/17 05:35 Hct 28.2 % (34.0-47.0) L 11/11/17 05:35 MCV 75.2 fl (81.0-99.0) L 11/11/17 05:35 MCH 24.5 pg (27.0-31.0) L 11/11/17 05:35 MCHC 32.6 g/dL (33.0-37.0) L 11/11/17 05:35 RDW 17.0 % (11.5-14.5) H 11/11/17 05:35 Plt Count 236 K/uL (130-400) 11/11/17 05:35 MPV 9.0 fl (7.2-11.7) 11/11/17 05:35 Neut % (Auto) 54.7 % (50.0-75.0) 11/11/17 05:35 Lymph % (Auto) 31.9 % (20.0-40.0) 11/11/17 05:35 [place] % (Auto) 8.1 % (0.0-10.0) 11/11/17 05:35 Eos % (Auto) 4.6 % (0.0-4.0) H 11/11/17 05:35 Baso % (Auto) 0.7 % (0.0-2.0) 11/11/17 05:35 Neut # (Auto) 3.9 K/uL (1.8-7.0) 11/11/17 05:35 Lymph # (Auto) 2.3 K/uL (1.0-4.3) 11/11/17 05:35 [place] # (Auto) 0.6 K/uL (0.0-0.8) 11/11/17 05:35 Eos # (Auto) 0.3 K/uL (0.0-0.7) 11/11/17 05:35 Baso # (Auto) 0.1 K/uL (0.0-0.2) 11/11/17 05:35 PT 12.7 Seconds (9.8-13.1) 11/08/17 18:29 INR 1.1 (0.9-1.2) 11/08/17 18:29 APTT 34.2 Seconds (25.6-37.1) 11/08/17 18:29 Sodium 139 mmol/l (132-148) 11/11/17 05:35 Potassium 3.7 MMOL/L (3.6-5.0) 11/11/17 05:35 Chloride 105 mmol/L (98-107) 11/11/17 05:35 Carbon Dioxide 26 mmol/L (22-30) 11/11/17 05:35 Anion Gap 12 (10-20) 11/11/17 05:35 BUN 5 mg/dl (7-17) L 11/11/17 05:35 Creatinine 0.6 mg/dl (0.7-1.2) L 11/11/17 05:35 Est GFR ( Amer) > 60 11/11/17 05:35 Est GFR (Non-Af Amer) > 60 11/11/17 05:35 Random Glucose 100 mg/dL (65-105) 11/11/17 05:35 Calcium 7.9 mg/dL (8.4-10.2) L 11/11/17 05:35 Total Bilirubin 2.3 mg/dl (0.2-1.3) H 11/11/17 05:35 Direct Bilirubin 4.0 mg/ml (0.0-0.4) H 11/08/17 20:47 AST 88 U/L (14-36) H D 11/11/17 05:35 ALT 177 U/L (9-52) H 11/11/17 05:35 Alkaline Phosphatase 161 U/L (38-126) H 11/11/17 05:35 Total Protein 5.9 G/DL (6.3-8.2) L 11/11/17 05:35 Albumin 2.8 g/dL (3.5-5.0) L 11/11/17 05:35 Globulin 3.2 gm/dL (2.2-3.9) 11/11/17 05:35 Albumin/Globulin Ratio 0.9 (1.0-2.1) L 11/11/17 05:35 Lipase 65 U/L (23-300) 11/08/17 18:29 Urine Color [place] (YELLOW) 11/09/17 08:50 Urine Clarity Slighty-cloudy (Clear) 11/09/17 08:50 Urine pH 6.0 (5.0-8.0) 11/09/17 08:50 Ur Specific [place] 1.025 (1.003-1.030) 11/09/17 08:50 Urine Protein Negative mg/dL (NEGATIVE) 11/09/17 08:50 Urine Glucose (UA) Neg mg/dL (Normal) 11/09/17 08:50 Urine Ketones 80 mg/dL (NEGATIVE) 11/09/17 08:50 Urine Blood Negative (NEGATIVE) 11/09/17 08:50 Urine Nitrate Negative (NEGATIVE) 11/09/17 08:50 Urine Bilirubin Moderate (NEGATIVE) 11/09/17 08:50 Urine Urobilinogen 4.0 mg/dL (0.2-1.0) H 11/09/17 08:50 Ur Leukocyte Esterase Neg Johanny/uL (Negative) 11/09/17 08:50 Urine RBC (Auto) 3 /hpf (0-3) 11/09/17 08:50 Urine Microscopic WBC 8 /hpf (0-5) H 11/09/17 08:50 Ur Squamous Epith Cells 4 /hpf (0-5) 11/09/17 08:50 Urine Bacteria Rare (<OCC) 11/09/17 08:50 Urine HCG, Qual Negative (NEGATIVE) 11/09/17 08:50 Alcohol, Quantitative < 10 mg/dl (0-10) 11/08/17 18:29 Hepatitis A IgM Ab Negative (NEGATIVE) 11/08/17 20:33 Hep Bs Antigen Negative (NEGATIVE) 11/08/17 20:33 Hep B Core IgM Ab Negative (NEGATIVE) 11/08/17 20:33 Hepatitis C Antibody Negative (NEGATIVE) 11/08/17 20:33 Blood Type O NEGATIVE 11/08/17 22:01 Blood Type Confirm O NEGATIVE 11/09/17 16:41 Antibody Screen Negative 11/08/17 22:01 BBK History Checked No verified bt 11/08/17 22:01 - Hospital Course Hospital Course: mri abd and mrcp ercp gi/surgery anbx Discharge Exam - Head Exam Head Exam: ATRAUMATIC, NORMAL INSPECTION, NORMOCEPHALIC Discharge Plan - Discharge Medications Prescriptions: Famotidine [Pepcid] 20 mg PO Q12 #60 tab Ondansetron ODT [Zofran ODT] 4 mg PO Q8H PRN #20 odt PRN Reason: Nausea/Vomiting - Follow Up Plan Condition: STABLE Disposition: HOME/ ROUTINE Instructions: Low Cholesterol, Saturated Fat, and Trans Fat Diet , Gallstones ( DC), Endoscopic Retrograde Cholangiopancreatography (DC), Cholecystitis (DC) Additional Instructions: follow up at Dr. Dorantes's office to schedule elective surgery Low fat diet Follow up [facility] tuesdaynovember 15- blood work- CBC, CMP final dx-choleductolithiasis, jaundice (improved), elev lft and bili repeat labs w/ f/u visit. outpt elective lap belén. rted prn. med spe rmed rec cleared by gi/surgery Referrals: Hector Rivera MD [Family Provider] - Ronn Dorantes MD [Staff Provider] - Chencho Cheatham MD, PhD [Staff Provider] -
--- NOTE | 2017-11-21 09:25 | RAD ---
PROCEDURE: Intraoperative Fluoroscopy. HISTORY: cbd stones FINDINGS: Fluoroscopic assistance was provided for ERCP guidance. Please refer to the operative report from DAVID Braden. 1018.4 seconds of fluoro time was utilized with a cumulative radiation dose 267.45 mGy.
== END 2017-11-11 15:05 | disposition home or self-care (01) | DRG 208 ==
LOC: H.ER 17:56 → H.ERHOLD 20:33 → H.MEDSURG1 11-09 00:16
PROVIDERS: ADMIT Family Medicine; ATTEND Family Medicine
PROC: 0F7D8DZ Dilation of Pancreatic Duct with Intraluminal Device, Via Natural or Artificial Opening Endoscopic (ICD-10-PCS; 2017-11-10)
PROC: 0F798DZ Dilation of Common Bile Duct with Intraluminal Device, Via Natural or Artificial Opening Endoscopic (ICD-10-PCS; principal; 2017-11-10 08:45)
DX: K80.42 Calculus of bile duct with acute cholecystitis without obstruction (principal); R17 Unspecified jaundice; K31.89 Other diseases of stomach and duodenum; R79.89 Other specified abnormal findings of blood chemistry

== ENCOUNTER 2017-11-16 09:56 | Day surgery (SDC) | payer OTHER ==
[2017-11-15 14:02] VITALS: BMI 29.2
[2017-11-16] MEDS ORDERED: Lactated Ringer's 1,000 ML IV ONE ×2 (11:24→14:42)
[2017-11-16] MEDS ORDERED: Propofol 10 mg/ml Inj (20 ML) ONE (11:30)
[2017-11-16] MEDS ORDERED: Succinylcholine 200 mg/10 ml Inj IV ONE (11:30)
[2017-11-16] MEDS ORDERED: Bupivacaine HCl 0.5% PF (30 ml) Inj ONE (11:30)
--- NOTE | 2017-11-16 11:40 | CP.SDSHP ---
Same Day Surgery H & P - History Proposed Procedure: lap belén Pre-Op Diagnosis: cholelithiasis - Previous Medical/Surgical History Pain: 2.Mild Pain - Allergies Allergies: Allergies aspirin Allergy (Verified 11/15/17 14:02) SWELLING - Physical Exam General Appearance: NAD Vital Signs: Vital Signs 11/16/17 11/16/17 10:57 11:34 Temperature 97.9 F Pulse Rate 55 L 55 L Respiratory 18 Rate Blood Pressure 110/60 O2 Sat by Pulse 98 Oximetry Mental Status: Alert & Oriented x3 Neuro: WNL Heart: WNL Lungs: WNL GI: WNL - {Optional Preform as Required} Breast: WNL Abdomen: WNL Integument: WNL - Impression Impression: cholelithiasis Pt. Evaluated Today:Candidate for Anesthesia & Procedure: Yes - Date & Time Date: 11/16/17 Time: 11:39 Short Stay Discharge - Short Stay Discharge Admitting Diagnosis/Reason for Visit: K80.20 Disposition: HOME/ ROUTINE Referrals: Hector Rivera MD [Primary Care Provider] - Ronn Dorantes MD [Staff Provider] - Additional Instructions (Diet, Activity): low fat diet No heavy lifting for 1 month Keep glue on incisions. Ok to take shower in 2 days Follow up at Dr. Dorantes's office in 1-2 weeks
[2017-11-16] MEDS ORDERED: Rocuronium 10 mg/ml (5 ml) ONE (11:54)
[2017-11-16] MEDS ORDERED: Bupivacaine HCl 0.5% PF (30 ml) Inj IJ ONE ×2 (12:03→12:53)
[2017-11-16] MEDS ORDERED: ePHEDrine 50 mg/ml Inj ONE (12:04)
[2017-11-16] MEDS ORDERED: Esmolol 100 mg/10ml Inj IV ONE (12:24)
--- NOTE | 2017-11-16 13:09 | PCM.SURG1 ---
Surgeon's Initial Post Op Note - Surgeon's Notes Surgeon: Dr. Dorantes Instructor Modeling: chet Dahl PGY2 Type of Anesthesia: General Endo, Local Pre-Operative Diagnosis: choledocolithiasis Operative Findings: stone in the cystic duct, fibrotic chronically inflammed GB Post-Operative Diagnosis: Cholelithiasis Operation Performed: Laparoscopic cholecystectomy Specimen/Specimens Removed: Gallbladder Estimated Blood Loss: EBL {In ML}: 20 Blood Products Given: N/A Drains Used: No Drains Post-Op Condition: Good Date of Surgery/Procedure: 11/16/17 Time of Surgery/Procedure: 13:10
[2017-11-16] MEDS ORDERED: Oxycodone/Acetaminophen 5/325 mg Tab PO PRN (13:16)
[2017-11-16] MEDS ORDERED: Dexamethasone 4 mg/1 ml IVP PRN (13:20)
[2017-11-16] MEDS ORDERED: HYDROmorphone 0.5 mg/0.5 ml ISec IVP PRN (13:20)
[2017-11-16] MEDS ORDERED: HYDROmorphone 0.5 mg/0.5 ml ISec ONE (13:24)
[2017-11-16 15:11] VITALS: RESP 18
--- NOTE | 2017-11-16 16:01 | OP ---
PROCEDURE DATE: 11/16/17 PREOPERATIVE DIAGNOSIS: Choledocholithiasis. POSTOPERATIVE DIAGNOSIS: Choledocholithiasis. PROCEDURE: Laparoscopic cholecystectomy. SURGEON: Ronn Dorantes MD WATERPROOF COATING MACHINE TENDER: Shankar Ferrera MD SECOND WATERPROOF COATING MACHINE TENDER: Dr. Herrera. ANESTHESIA ADMINISTERED BY: Jamaal Renner MD TYPE OF ANESTHESIA: General with endotracheal intubation. IV FLUID INTAKE: Crystalloids. ESTIMATED BLOOD LOSS: 10 mL. INTRAOPERATIVE FINDINGS: Cholelithiasis. SPECIMEN: Gallbladder. BRIEF HISTORY: Ms. Guidry is a very pleasant 52-year-old female who initially presented to [facility] with abdominal pain and upon further investigation on MRCP was found to have choledocholithiasis. The patient subsequently underwent ERCP and placement of common bile duct stent by from Gastroenterology and subsequently was discharged home with LFTs trending down and was brought in for elective cholecystectomy. All the risks and benefits of the procedure were explained to the patient, and with the patient having a full understanding of all the risks and benefits involved, informed consent was obtained, and the patient was taken to the operating room for above-stated procedure. DESCRIPTION OF PROCEDURE: The patient was brought into the operating room and placed supine on the operating table. Bilateral Flowtron boots were applied to the patient's lower extremities. After successful induction of anesthesia and successful endotracheal intubation by the Anesthesia team, the patient's abdomen was prepped with ChloraPrep stick and draped in the standard surgical fashion. Prior to the beginning of the procedure, a time-out was called in the room and everyone in the room were in agreement. Using the Veress needle, the patient's abdomen was entered at the umbilicus and pneumoperitoneum was achieved with good opening pressures. Once this was accomplished, using an 11-blade scalpel knife, approximately 1 cm incision was made in the umbilicus in a longitudinal fashion and subsequent to that, the 11 mm trocar was introduced into the patient's abdomen. At this point in time, a 5 mm 0-degree scope was introduced into the patient's abdomen and abdomen was inspected. We immediately were able to visualize the gallbladder that appeared to be chronically inflamed. Then, attention was turned to the subxiphoid area. Using an 11-blade scalpel knife, 5-mm incision was made in transverse fashion into subxiphoid area and subsequent to that 5-mm trocar was introduced into the patient's abdomen. At this point in time, attention was turned to the right side of the patient's abdomen. Using an 11 blade scalpel knife, two 5-mm incisions were made in the right side of the patient's abdomen in a transverse fashion. Subsequent to that, two more 5-mm trocars were introduced into the patient's abdomen. At this point in time, gallbladder was grasped at the fundus and the infundibulum, and using [place] dissector, cystic duct and cystic artery were dissected out and a critical view of safety was achieved. At this point in time, the cystic artery was clipped with two clips proximal, one distal, and transected with laparoscopic scissors; however, the cystic duct appeared to be too thick for the clips, so the decision was made to use the Endoloop. The cystic duct was transected right next to the gallbladder and subsequent to that Vicryl Endoloop was introduced into the patient's abdomen and was tightened around the cystic duct stump. At this point in time, the string for the Vicryl loop was cut and removed from the patient's abdomen and passed off to the Lloyd stand. At this point in time, gallbladder was dissected off the gallbladder fossa using hook electrocautery. Once the gallbladder was completely transected off from the gallbladder fossa, EndoCatch bag was introduced into the patient's abdomen; gallbladder was placed inside of the bag and the bag was closed. Once this was accomplished, gallbladder fossa was inspected for hemostasis. Hemostasis was achieved with hook electrocautery and subsequent to that, the patient's gallbladder fossa and abdominal cavity were irrigated and fluid was suctioned out and at this point in time, gallbladder together with EndoCatch bag and 111-mm trocar were removed from the patient's abdomen and passed off to the Lloyd stand as a specimen. Fascial layer at the umbilical port site was closed with 0-Vicryl suture and UR-5 needle and one on the UR-6 needle in an interrupted fashion with two sutures. At this point in time, the patient's abdomen was fully desufflated; the rest of the trocars were removed from the patient's abdomen and the skin was closed with 4-0 Monocryl suture in a running subcuticular fashion. At the end of the procedure, incision sites were infiltrated with Marcaine anesthetic. The patient's abdomen was washed and dried and a Dermabond was applied to the site of the incisions. The patient was successfully extubated by the Anesthesia Team, transferred to the stretcher, and taken to the recovery room in a stable condition. At the end of the procedure, all instrument counts, needles, and sponges were correct. Ronn Dorantes MD MTDD
[2017-11-16 16:06] VITALS: O2SAT 99
[2017-11-16 16:57] VITALS: BP 112/72; PULSE 68; TEMP 97.8
--- NOTE | 2017-11-16 17:08 | CARD ---
APPROVED REPORT EKG Measurement Heart [id number] <Conclusion> Sinus bradycardia Otherwise normal ECG
== END 2017-11-16 17:00 | disposition home or self-care (01) ==
LOC: H.OPSURG 09:56
PROVIDERS: ATTEND Surgery
DX: K80.20 Calculus of gallbladder without cholecystitis without obstruction (principal); E78.5 Hyperlipidemia, unspecified
CPT/HCPCS: 47562; 93005; J0330; J0690; J1100; J1170; J2001; J2704; J3010; J7120